=== PATIENT | female | born 1980 | race Two or more races ===

== ENCOUNTER 2017-11-20 15:13 | Emergency (ER) | payer OTHER ==
[~2017-11-20] VITALS: Ht 160 cm; Wt 95.3 kg
== END 2017-11-20 18:05 | disposition home or self-care (01) ==
LOC: ER 15:13
DX: M54.5 Low back pain (principal)

== ENCOUNTER 2018-05-07 11:01 | Emergency (ER) | payer OTHER ==
[~2018-05-07] VITALS: Ht 160 cm; Wt 95.3 kg
[2018-05-07] MEDS ORDERED: DUI500 PO (11:39)
== END 2018-05-07 12:15 | disposition home or self-care (01) ==
LOC: ER 11:01
DX: L03.115 Cellulitis of right lower limb (principal)

== ENCOUNTER → 2018-05-25 | Outpatient (CLI) | payer OTHER ==
[~2018-05-25] MED LIST: DUI500 PO
== END | disposition home or self-care (01) ==
LOC: NUCLEAR 07:00
DX: K31.84 Gastroparesis (principal)
CPT/HCPCS: 78264; A9541